=== PATIENT | male | born 1990 | race American Indian/Alaskan Native ===

== ENCOUNTER 2020-07-19 00:28 | Emergency (ER) | payer OTHER ==
[2020-07-19 00:37] VITALS: BP 129/80
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
== END 2020-07-19 02:40 | disposition home or self-care (01) ==
LOC: ED 00:28
DX: Z02.89 Encounter for other administrative examinations (principal); S06.0X1A Concussion with loss of consciousness of 30 minutes or less, initial encounter; S40.012A Contusion of left shoulder, initial encounter; V49.3XXA Car occupant (driver) (passenger) injured in unspecified nontraffic accident, initial encounter; Y93.89 Activity, other specified; Y92.89 Other specified places as the place of occurrence of the external cause; F17.200 Nicotine dependence, unspecified, uncomplicated
CPT/HCPCS: 70450; 99284